=== PATIENT | male | born 1970 | race Hispanic/Latino ===

== ENCOUNTER 2019-10-13 16:39 | Emergency (ER) | payer OTHER ==
[2019-10-13 17:54] LABS: BASOPHILS % (AUTO) 0.2 % (0.0-5.0); EOSINOPHILS % (AUTO) 0.8 % (0.0-8.0); HEMATOCRIT 43.4 % (42-54); LYMPHOCYTES % (AUTO) 25.8 % (21.0-51.0); MEAN CORPUSCULAR HGB CONC 31.8 g/dL (32.0-36.0); MEAN CORPUSCULAR VOLUME 81.7 fL (79-99); MONOCYTES % (AUTO) 6.7 % (3.0-13.0); NEUTROPHILS % (AUTO) 66.2 % (40.0-77.0); PLATELET COUNT (AUTO) 286 K/uL (130-400); RED BLOOD CELL COUNT(AUTO) 5.31 MIL/uL (4.50-6.20); RED CELL DISTRIBUTION WIDTH 14.1 % (11.0-15.5); WHITE BLOOD COUNT (AUTO) 6.2 K/uL (4.8-10.8)
[2019-10-13 18:51] LABS: POTASSIUM 3.8 mmol/L (3.5-5.1)
[2019-10-13 18:56] LABS: ALBUMIN 3.5 g/dL (3.5-5.0); BILIRUBIN,TOTAL 0.9 mg/dL (0.2-1.0); TOTAL PROTEIN, SERUM 8.3 g/dL (6.0-8.3)
== END 2019-10-13 19:05 | disposition home or self-care (01) ==
LOC: EDH 16:39
DX: R53.83 Other fatigue (principal); R53.81 Other malaise; Z90.49 Acquired absence of other specified parts of digestive tract
CPT/HCPCS: 36415; 80053; 85025

== ENCOUNTER 2024-02-23 13:05 | Emergency (ER) | payer BC ==
[~2024-02-23] VITALS: Ht 182.9 cm; Wt 147.0 kg
[2024-02-23 13:10] VITALS: PULSE 68; RESP 22; TEMP 98.4
== END 2024-02-23 13:17 | disposition left against medical advice (07) ==
LOC: EDH 13:05
DX: M79.605 Pain in left leg (principal); Z53.21 Procedure and treatment not carried out due to patient leaving prior to being seen by health care provider